=== PATIENT | male | born 1985 | race Caucasian/White ===

== ENCOUNTER 2024-08-09 08:32 | Outpatient (CLI) | payer OTHER | END 2024-08-09 08:33 | disposition home or self-care (01) | LOC: CSHSLEEP 08:32 | PROVIDERS: ATTEND Family Medicine | DX: G47.33 Obstructive sleep apnea (adult) (pediatric) (principal); R53.83 Other fatigue; R06.83 Snoring; E66.9 Obesity, unspecified; Z68.39 Body mass index [BMI] 39.0-39.9, adult | CPT/HCPCS: 95810 ==